=== PATIENT | male | born 1985 | race African-American/Black ===

== ENCOUNTER 2016-06-08 18:24 | Emergency (ER) | payer SELFPAY ==
[2016-06-08 18:09] LABS: INFLUENZA A NEG (NEG); INFLUENZA B NEG (NEG)
[~2016-06-08 18:24] MED LIST: AMOXICILLIN500 M1 PO; PHENERGAN DM1 ML PO
== END 2016-06-08 18:27 | disposition home or self-care (01) ==
LOC: CFTX 18:24
PROVIDERS: Physician Assistant
DX: J06.9 Acute upper respiratory infection, unspecified (principal); F17.210 Nicotine dependence, cigarettes, uncomplicated
CPT/HCPCS: 87651; 87804; 99282

== ENCOUNTER 2016-06-10 21:58 | Emergency (ER) | payer SELFPAY | END 2016-06-10 22:30 | disposition home or self-care (01) | LOC: CFTX 21:58 | DX: J06.9 Acute upper respiratory infection, unspecified (principal); I10 Essential (primary) hypertension; F17.210 Nicotine dependence, cigarettes, uncomplicated | CPT/HCPCS: 99282 ==

== ENCOUNTER 2016-08-14 13:29 | Emergency (ER) | payer SELFPAY | END 2016-08-14 15:35 | disposition home or self-care (01) | LOC: CED 13:29 → CFTX 13:29 | DX: J06.9 Acute upper respiratory infection, unspecified (principal); J30.2 Other seasonal allergic rhinitis; I10 Essential (primary) hypertension; F17.210 Nicotine dependence, cigarettes, uncomplicated | CPT/HCPCS: 87651; 99282 ==